=== PATIENT | female | born 1970 | race Caucasian/White ===

== ENCOUNTER 2018-01-08 03:16 | Emergency (ER) | payer MEDICAID ==
[~2018-01-08] VITALS: Ht 144.8 cm; Wt 68.9 kg
[2018-01-08 03:20] VITALS: Ht 144.8 cm; Wt 68.9 kg
[2018-01-08 07:22] LABS: BASOPHIL % 0.3 % (0-2)
[2018-01-08 07:25] LABS: PLATELET COUNT 428 x10^3mcL (130-400); RED CELL DISTRIBUTION WIDTH 15.6 % (11.5-14.5)
[2018-01-08 07:30] LABS: CALCIUM 10.2 mg/dL (8.5-10.1); CARBON DIOXIDE 26.7 mmol/L (21-32); CHLORIDE SERUM 98 mmol/L (98-107); CREATININE SERUM 0.8 mg/dL (0.6-1.0); GFR1 > 60 mL/min; GLUCOSE SERUM 249 mg/dL (74-106); POTASSIUM SERUM 4.1 mmol/L (3.5-5.1); SODIUM SERUM 134 mmol/L (136-145)
[2018-01-08 07:43] LABS: ALBUMIN 3.6 g/dL (3.4-5.0); ALKALINE PHOSPHATASE 99 U/L (46-116); ALT/SGPT 21 U/L (14-59); AMYLASE 57 U/L (25-115); AST/SGOT 15 U/L (15-37); BILIRUBIN TOTAL 0.27 mg/dL (0.20-1.00); HDL CHOLESTEROL 56 mg/dL (40-60); LIPASE 158 IU/L (73-393); T4(THYROXINE) 8.2 ug/dL (4.7-13.3); TOTAL PROTEIN, SERUM 8.1 g/dL (6.4-8.2)
[2018-01-08 07:45] LABS: UA SPECIFIC GRAVITY 1.015 (1.005-1.035); microscopic required? YES; urine erythrocyte 3+ (NEGATIVE)
[2018-01-08 07:46] LABS: CHOLESTEROL 232 mg/dL (<200); rbc morphology (normal/abnorm) ABNORMAL (NORMAL)
[2018-01-08 09:27] LABS: AMPHETAMINE QUAL UR NONE DETECTED (NEG <=1000)
[2018-01-08 10:23] VITALS: BP 140/69
== END 2018-01-08 10:23 | disposition home or self-care (01) ==
LOC: ED 03:16
PROVIDERS: Emergency Medicine
DX: E11.9 Type 2 diabetes mellitus without complications (principal); R10.13 Epigastric pain; R11.2 Nausea with vomiting, unspecified; R19.7 Diarrhea, unspecified; I10 Essential (primary) hypertension; I45.10 Unspecified right bundle-branch block
CPT/HCPCS: 36600; 82962; 83880; J1815; J3490; Q0092

== ENCOUNTER 2018-01-11 21:31 | Emergency (ER) | payer MEDICAID ==
[~2018-01-11] VITALS: Ht 144.8 cm; Wt 67.1 kg
[2018-01-11 22:15] VITALS: Ht 144.8 cm; Wt 67.1 kg
[2018-01-11 23:08] LABS: BASOPHIL % 0.2 % (0-2); PLATELET COUNT 414 x10^3mcL (130-400); RED CELL DISTRIBUTION WIDTH 16.1 % (11.5-14.5)
[2018-01-11 23:16] LABS: CALCIUM 9.7 mg/dL (8.5-10.1); CARBON DIOXIDE 24.9 mmol/L (21-32); CHLORIDE SERUM 98 mmol/L (98-107); CREATININE SERUM 0.8 mg/dL (0.6-1.0); GFR1 > 60 mL/min; GLUCOSE SERUM 262 mg/dL (74-106); POTASSIUM SERUM 3.6 mmol/L (3.5-5.1); SODIUM SERUM 134 mmol/L (136-145)
[2018-01-11 23:21] LABS: ALBUMIN 3.6 g/dL (3.4-5.0); ALKALINE PHOSPHATASE 104 U/L (46-116); ALT/SGPT 23 U/L (14-59); AST/SGOT 14 U/L (15-37); BILIRUBIN TOTAL 0.2 mg/dL (0.20-1.00); TOTAL PROTEIN, SERUM 7.7 g/dL (6.4-8.2)
[2018-01-12 00:48] VITALS: BP 144/87
== END 2018-01-12 00:48 | disposition home or self-care (01) ==
LOC: ED 21:31
PROVIDERS: Emergency Medicine
DX: N23 Unspecified renal colic (principal); I10 Essential (primary) hypertension; E11.9 Type 2 diabetes mellitus without complications
CPT/HCPCS: J1885; J2405; J3010; J7030; Q0092

== ENCOUNTER 2020-08-14 19:23 | Emergency (ER) | payer MEDICAID ==
[~2020-08-14] VITALS: Ht 144.8 cm; Wt 68.2 kg
[2020-08-14 19:31] VITALS: Ht 144.8 cm; Wt 68.2 kg
[2020-08-14 20:03] LABS: microscopic required? NO
[2020-08-14 20:17] LABS: UA SPECIFIC GRAVITY <=1.005 (1.005-1.035); urine erythrocyte NEGATIVE (NEGATIVE)
[2020-08-14 20:58] VITALS: BP 150/93
== END 2020-08-14 20:58 | disposition home or self-care (01) ==
LOC: ED 19:23
PROVIDERS: Emergency Medicine
DX: R30.0 Dysuria (principal); R35.0 Frequency of micturition; M54.5 Low back pain; I10 Essential (primary) hypertension; E11.9 Type 2 diabetes mellitus without complications; E78.5 Hyperlipidemia, unspecified
CPT/HCPCS: J1885